=== PATIENT | female | born 1975 | race Two or more races ===

== ENCOUNTER 2017-09-29 11:11 | Outpatient (CLI) | payer OTHER ==
[~2017-09-29 11:11] MED LIST: ASA81 MG; DIOVAN160 M1; PEPCID40 MG PO; PHENERGAN25 MG PO; TAMOXIFEN CITRA
== END 2017-09-29 11:24 | disposition home or self-care (01) ==
LOC: SONOGRAMA 11:11
DX: E04.1 Nontoxic single thyroid nodule (principal)

== ENCOUNTER 2018-10-12 10:17 | Outpatient (CLI) | payer OTHER | END 2018-10-12 11:12 | disposition home or self-care (01) | LOC: SONOGRAMA 10:17 | DX: E04.1 Nontoxic single thyroid nodule (principal) ==